=== PATIENT | male | born 1955 | race Two or more races ===

== ENCOUNTER 2019-11-21 12:43 | Emergency (ER) | payer OTHER ==
[~2019-11-21] VITALS: Ht 177.8 cm; Wt 81.6 kg
== END 2019-11-21 14:29 | disposition home or self-care (01) ==
LOC: ER 12:43
DX: M12.562 Traumatic arthropathy, left knee (principal); S00.83XA Contusion of other part of head, initial encounter; W18.39XA Other fall on same level, initial encounter; Y93.89 Activity, other specified; Y92.098 Other place in other non-institutional residence as the place of occurrence of the external cause; Y99.8 Other external cause status; R55 Syncope and collapse